=== PATIENT | female | born 1980 | race Asian ===

== ENCOUNTER 2019-02-18 22:04 | Emergency (ER) | payer MEDICAID, OTHER ==
[2019-02-18 23:10] LABS: ABS Eosinophils 0.1 10^3/ul (0-0.6); ABS Lymphocytes 2.1 10^3/ul (1.0-4.8); ABS Monocytes 0.4 10^3/ul (0-0.8); Eosinophil % 1.5 %; Hematocrit 39 % (35-47); Hemoglobin 13.2 g/dL (12.0-16.0); Lymphocyte % 27.3 %; Mean Corpuscular HGB Conc 34 g/dL (31-36); Mean Corpuscular Hemoglobin 30 pg (27-31); Mean Corpuscular Volume 90 fL (80-97); Mean Platelet Volume 8.1 fL (7.4-10.4); Platelet Count 318 10^3/uL (150-450); Red Blood Count 4.35 10^6 /uL (3.70-4.87); Red Cell Distribution Width 13 % (10-15); White Blood Count 7.7 10^3/uL (3.5-10.8)
[2019-02-18 23:11] LABS: Urine Appearance Cloudy; Urine Bacteria Absent (Absent); Urine Bilirubin Negative (Negative); Urine Blood 2+ (Negative); Urine Color Yellow; Urine Glucose Negative (Negative); Urine Ketones Negative (Negative); Urine Nitrite Negative (Negative); Urine Protein Negative (Negative); Urine Red Blood Cell 3+(>10/hpf) (Absent); Urine Specific Gravity 1.016 (1.010-1.030); Urine Squamous Epithelial Cell Present (Absent); Urine Urobilinogen Negative (Negative); Urine White Blood Cell Trace(0-5/hpf) (Absent)
[2019-02-18 23:21] LABS: Urine Benzodiazepine Screen None Detected (None Detect); Urine Opiates Screen None Detected (None Detect)
[2019-02-18 23:27] LABS: ALT 40 U/L (7-52); AST 27 U/L (13-39); Albumin 4.6 g/dL (3.2-5.2); Albumin/Globulin Ratio 1.4 (1-3); Alkaline Phosphatase 92 U/L (34-104); Anion Gap 6 mmol/L (2-11); BUN/Creatinine Ratio 17.8 (8-20); Blood Urea Nitrogen 13 mg/dL (6-24); CO2 Carbon Dioxide 29 mmol/L (22-32); Chloride 104 mmol/L (101-111); EGFR African American 109.2 (>60); EGFR Non-African American 90.2 (>60); Globulin 3.4 g/dL (2-4); Glucose 151 mg/dL (70-100); Potassium 4.1 mmol/L (3.5-5.0); Sodium 139 mmol/L (135-145)
[2019-02-18 23:45] LABS: Acetaminophen < 15 mcg/mL; Alcohol < 10 mg/dL (<10); Salicylate < 2.50 mg/dL (<30)
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
--- NOTE | 2019-02-19 02:43 | ED ---
Progress - Progress Note Progress Note: This patient was signed out from Jose Castillo to Dr. Meredith at 0230 on 02/19, pending disposition, awaiting MHE. MHE will not occur until morning. Pt is a sign out to Dr. Boland at shift change at 0700 on 02/19/19. Course/Dx - Course Course Of Treatment: 38-year-old female. Found wandering by police with sucidal ideation. Pt is medically cleared. This patient was signed out from Jose Castillo to Dr. Meredith at 0230 on 02/19/19, pending disposition, awaiting MHE. MHE will not occur until morning. Pt is a sign out to Dr. Boland at shift change at 0700 on 02/19/19 pending mental health evaluation. Discharge - Sign-Out/Discharge Documenting (check all that apply): Sign-Out Patient Signing out patient TO: Lokesh Boland - Pt is a sign out at shift change at 0700 on 02/20/19 Receiving patient FROM: Johan Meredith - Discharge Plan Referrals: Erick La MD [Primary Care Provider] - - Attestation Statements Document Initiated by Scribe: Yes Documenting Scribe: Tatiana Recinos Provider For Whom Scribe is Documenting (Include Credential): Dr. Johan Meredith MD Scribe Attestation: Tatiana Seaman, scribed for Dr. Johan Meredith MD on 02/19/19 at 0710. Status of Scribe Document: Ready
[2019-02-19] MEDS ORDERED: Acetaminophen TAB* 325 MG PO ONE (05:13)
--- NOTE | 2019-02-19 07:15 | ED ---
Progress - Progress Note Progress Note: This patient was signed out from Dr. Meredith to Dr. Boland at 0700 on 02/19/19, pending a MHE. Course/Dx - Course Course Of Treatment: This patient was signed out from Dr. Meredith to Dr. Boland at 0700 on 02/19/19, pending a MHE. Per Dr. Figueroa, psychiatrist, the pt will be discharged home with a Dx of adjusment disorder with disturbances in mood and conduct. She was instructed to visit the advocacy center and couples counseling. - Diagnoses Provider Diagnoses: Adjustment disorder with disturbance of conduct, Adjustment disorder with disturbance of emotion - Provider Notifications Discussed Care Of Patient With: Yassine Figueroa Time Discussed With Above Provider: 10:48 Discharge - Sign-Out/Discharge Documenting (check all that apply): Patient Departure - discharge Patient Received Moderate/Deep Sedation with Procedure: No - Discharge Plan Condition: Stable Disposition: HOME Referrals: Erick La MD [Primary Care Provider] - - Attestation Statements Document Initiated by Scribe: Yes Documenting Scribe: Jessee Greene Provider For Whom Scribe is Documenting (Include Credential): Lokesh Boland MD Scribe Attestation: Jessee Seaman, scribed for Lokesh Boland MD on 02/19/19 at 1046. Status of Scribe Document: Ready
[2019-02-19 11:47] VITALS: BP 135/78
== END 2019-02-19 11:51 | disposition home or self-care (01) ==
LOC: ED 22:04
DX: F43.25 Adjustment disorder with mixed disturbance of emotions and conduct (principal); E11.9 Type 2 diabetes mellitus without complications; E07.9 Disorder of thyroid, unspecified
CPT/HCPCS: 36415; 80053; 80307; 80320; 80329; 81003; 81015; 84443; 85025; 87086; 99285; A9270-GY; G0480